=== PATIENT | male | born 1985 | race Caucasian/White ===

== ENCOUNTER 2021-12-21 09:59 | Emergency (ER) | payer BC | END 2021-12-21 11:14 | disposition home or self-care (01) | LOC: ER1 09:59 | DX: S61.211A Laceration without foreign body of left index finger without damage to nail, initial encounter (principal); F17.200 Nicotine dependence, unspecified, uncomplicated; W26.8XXA Contact with other sharp object(s), not elsewhere classified, initial encounter; Z23 Encounter for immunization | CPT/HCPCS: 12001; 90471; 90715; 99282 ==